=== PATIENT | female | born 1970 | race Caucasian/White ===

== ENCOUNTER 2019-07-02 00:24 | Emergency (ER) | payer BC ==
[~2019-07-02] VITALS: Ht 165.1 cm; Wt 76.7 kg
--- NOTE | 2019-07-02 00:32 | NUR ---
CALLED FOR PT, PT IN ER LOBBY BATHROOM.
[2019-07-02 01:01] VITALS: BP 162/81
--- NOTE | 2019-07-02 01:06 | NUR ---
PT TAKEN TO BED 8
--- NOTE | 2019-07-02 01:13 | NUR ---
PT C/O URINARY FREQUENCY, URGENCY, RETENTION SINCE 2199 LAST NIGHT. DENIES FEVER, DENIES PAIN. DENIES ABD DISCOMFORT. PT SITTING ON BED, FAMILY MEMBER AT BEDSIDE. VSS. NO FURTHER COMPLAINTS MEDHX: DENIES ALLERGIES: DENIES
[2019-07-02] MEDS ORDERED: PHENAZOPYRIDINE 100 MG TAB PO ONE (01:50)
[2019-07-02] MEDS ORDERED: cefTRIAXone 1,000 MG in LIDOCAINE MPF 1% 2.1 ML IM ONE (02:00)
[2019-07-02] MEDS ORDERED: KETOROLAC 30 MG/ML VIAL IM ONE (02:00)
[2019-07-02] MEDS ORDERED: HYDROcodone/APAP 5/325 MG 1 TAB TAB PO ONE (02:00)
--- NOTE | 2019-07-02 02:47 | NUR ---
Patient discharged with v/s stable. Written and verbal after care instructions given and explained. Patient alert, oriented and verbalized understanding of instructions. Ambulatory with steady gait. All questions addressed prior to discharge. ID band removed. Patient advised to follow up with PMD. Rx of NAPROSYN 500MG 1 TAB 2 TIMES A DAY NEEDED FOR PAIN, PHENAZOPYRIDINE HYDROCHLORIDE 100MG TABLET 1 TAB 3 TIMES A DAY NEEDED FOR PAIN, KEFLEX 500MG 1 CAP 4 TIMES A DAY BY MOUTH (10dAYS) given. Patient educated on indication of medication including possible reaction and side effects. Opportunity to ask questions provided and answered.
[2019-07-02 02:48] VITALS: BP 137/74
== END 2019-07-02 02:47 | disposition home or self-care (01) ==
LOC: MED 00:24
DX: N30.91 Cystitis, unspecified with hematuria (principal); Z98.890 Other specified postprocedural states
CPT/HCPCS: 81002; 81025; 96372; 99283; J0696; J1885; J2001